=== PATIENT | female | born 1950 | race Caucasian/White ===

== ENCOUNTER 2017-12-06 11:50 | Day surgery (SDC) | payer MEDICARE ==
[2017-12-01 09:37] VITALS: BMI 27.3
[~2017-12-06 11:50] MED LIST: HYDROmorphone 0.5 MG/0.5 ML SYRINGE IVP PRN; LACTATED RINGERS 1,000 ML IV SCH; Pre Op ABX Message 1 EACH MISC MISCELLANE ONE; fentaNYL (PF) 50 MCG/ML 2 ML AMP IV PRN
[2017-12-06] MEDS ORDERED: LIDOCAINE 1% 20 ML VIAL (10MG/ML) FOR IV START INTRADERMA ONE (12:40)
[2017-12-06] MEDS ORDERED: DEXAMETHASONE SOD PHOS (MDV) 100 MG/10 ML VIAL IV ONE (12:41)
[2017-12-06] MEDS: ONDANSETRON 4 MG/2 ML VIAL IVP ONE ×2 (12:42→15:19)
[2017-12-06] MEDS ORDERED: LIDOCAINE 1% INJ 10MG/ML (20 ML MDV) ONE (12:54)
[2017-12-06] MEDS ORDERED: DEXAMETHASONE SOD PHOS (MDV) 100 MG/10 ML VIAL ONE (12:54)
[2017-12-06] MEDS ORDERED: PROPOFOL 10 MG/ML 20 ML VIAL IV ONE (12:54)
[2017-12-06] MEDS ORDERED: ePHEDrine SULFATE/0.9% NACL/PF 50 MG/5 ML SYRINGE IV ONE (12:54)
[2017-12-06] MEDS ORDERED: MIDAZOLAM 2 MG/2 ML VIAL ONE (12:54)
[2017-12-06] MEDS ORDERED: fentaNYL (PF) 50 MCG/ML 2 ML AMP ONE (12:54)
[2017-12-06] MEDS ORDERED: SODIUM CHLORIDE 0.9% 100 ML with ceFAZolin 2,000 MG IV ONE ×2 (13:05)
[2017-12-06] MEDS ORDERED: ROPIVACAINE 5 MG/ML 30 ML VIAL MISCELLANE ONE ×2 (13:12→14:21)
[2017-12-06 14:57] VITALS: TEMP 97
--- NOTE | 2017-12-06 15:03 | P.PCN ---
Date of Procedure: 12/06/17 Preoperative Diagnosis: 1. Hallux abductovalgus deformity left foot 2. 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 Lavelle Jason bunionectomy with pin and wire fixation left foot 2. Arthrodesis second toe left foot with pin fixation Surgeon: Alec Raman Operative Findings: Unremarkable Description of Procedure: On the date of surgery the patient was taken to the operating room in good condition placed on the operating table supine position where an V was started and LMA. The patient's first ray complex was then injected with 10 mL of Sensorcaine was administered in a Sloan type block to the first ray complex of the patient's left foot The patient's left foot and ankle were then prepped and draped in the usual aseptic manner and over heavy web roll padding an ankle tourniquet was placed above the malleoli of the patient's left ankle the patient's left foot and ankle were then elevated and exsanguinated of blood utilizing Esmarch bandage and after approximately 2 minutes period of time the ankle tourniquet was inflated to approximately 275 mmHg. At this point in time attention was directed to the dorsal aspect of the metatarsal phalangeal joint where an approximately Demeter dorsal linear incision was made the incision was deepened via sharp dissection down through the level of subcutaneous tissue layers all neurovascular structures encountered were identified isolated and were retracted and any bleeding vessels were then clamped electrocauterized. Dissection was then carried deep via sharp and blunt technique down to level Periosteal Structures Overlying the First Metatarsal Phalangeal Joint These Were Incised Utilizing an Inverted L Incision and Underscored and Retracted from the Underlying Bone Hyperostosis Present on the Medial Side of the First Metatarsal Head Was Then Resected Flush in Line with the Shaft of the First Metatarsal and Removed in Total from the Surgical Site. Throughout the Surgical Procedure Copious Amounts Sterile Saline Solution Was Used To Irrigate the Surgical Site. At This Point in Time the Oscillating Bone Saw Was Used To Create a Transverse V Osteotomy at the Level of the Metaphysis of the First Metatarsal upon Completion of This Osteotomy the Capital Fragment Was Displaced Laterally and Impacted Back upon the Drake Created by the Osteotomy Was Then Fixated with 2 Crossing 0.062 K Wires at This Point in Time Attention Was Directed to the Lateral Capsular Area of the First Metatarsal Phalangeal Joint Where Dissection Was Carried Deep along the Side of the Joint and a Lateral Capsulotomy Was Performed. Carried Deep down to Level Parosteal Structures Overlying the Base of the Proximal Phalanx These Were Incised in Line original skin incision and underscored and retracted from the underlying bone eyes an oscillating bone saw a dorsal to plantar wedge osteotomy was performed in such a manner that the apex of the wedge was directed laterally base of the wedge was directed medially the encompass wedge of bone was removed in total from the surgical site by applying lateral to medial pressure the osteotomy closed down upon itself to surgical drill holes were then fashioned on either side of the osteotomy in such a manner that they met with then using double strength 28-gauge monofilament stainless steel wire the osteotomy was fixated and anatomically closed in opposed position. Upon completion of this the hallux was seen to maintain a rectus. Redundant Capsule medial side of the joint was then removed Capsule and Periosteal Structures Then Coaptated and Maintained Utilizing 201 3-0 Vicryl Simple Interrupted Suture. Subcutaneous Tissues Were Then Coaptated and Maintained Utilizing 3-0 Vicryl Simple Interrupted Suture and the Skin Was Closed Utilizing 4-0 nylon simple interrupted suture At this point in time attention was directed to the dorsal aspect of the second digit left foot where an approximately 2-1/2 cm dorsal linear incision was made. The incision was deepened via sharp dissection down through the level of subcutaneous tissue layers all neurovascular structures encountered were identified isolated and were retracted and any bleeding vessels were clamped electrocauterized dissection was then carried deep down to the level of the extensor digitorum longus tendon to the second toe which was incised in line with the proximal interphalangeal joint and underscored and retracted from the underlying bone. Utilizing an oscillating bone saw the head of the proximal phalanx was resected it a 90 angle to the shaft and removed in total from the surgical site. Utilizing the oscillating bone saw the base of the middle phalanx was resected. 0.045 K wire was then passed through the middle and distal phalanx and retrograded back into the proximal phalanx the digit and anatomically corrected position. The extensor digitorum longus tendon was then shortened and then coaptated and maintained utilizing 3-0 Vicryl simple interrupted suture and the skin was closed utilizing 4-0 nylon simple interrupted suture at this point in time Adaptic was applied to the incision sites and Kerlix fluffs as well as four-inch Herson and Coban to form a compression dressing the ankle tourniquet to the patient's left ankle was deflated and adequate hemostatic return was seen in all digits of the left foot specifically the hallux and the second toe The patient was then
[2017-12-06] MEDS ORDERED: PROMETHAZINE INJ 25 MG/ML 1 ML VIAL IVPB ONE (15:31)
[2017-12-06 16:10] VITALS: RESP 18
[2017-12-06 16:25] VITALS: PULSE 84
[2017-12-06 16:41] VITALS: BP 129/70
== END 2017-12-06 17:16 | disposition home or self-care (01) ==
LOC: OR 11:50
PROVIDERS: ATTEND Podiatrist Foot & Ankle Surgery
DX: M20.12 Hallux valgus (acquired), left foot (principal); M20.42 Other hammer toe(s) (acquired), left foot; E78.5 Hyperlipidemia, unspecified; G47.00 Insomnia, unspecified; J45.909 Unspecified asthma, uncomplicated; L71.9 Rosacea, unspecified; R61 Generalized hyperhidrosis; L91.8 Other hypertrophic disorders of the skin; Z79.82 Long term (current) use of aspirin; Z79.899 Other long term (current) drug therapy; Z79.51 Long term (current) use of inhaled steroids; Z88.8 Allergy status to other drugs, medicaments and biological substances; Z87.891 Personal history of nicotine dependence

== ENCOUNTER → 2024-03-06 | Day surgery (SDC) | payer MEDICARE, OTHER ==
[2024-03-05 09:53] VITALS: BMI 25.1
[~2024-03-06] MED LIST changes: -HYDROmorphone 0.5 MG/0.5 ML SYRINGE IVP PRN; -LACTATED RINGERS 1,000 ML IV SCH; +MIDAZOLAM 2 MG/2 ML VIAL ONE; -Pre Op ABX Message 1 EACH MISC MISCELLANE ONE; +TETRACAINE 0.5% OPHTH (PF) DROPS 4 ML BTL OP PRN; -fentaNYL (PF) 50 MCG/ML 2 ML AMP IV PRN; +fentaNYL (PF) 50 MCG/ML 2 ML AMP ONE
[2024-03-06] MEDS: CYCLOPENTOLATE 1% OPHTH SOLN 2 ML BTL OP PRN (08:44)
[2024-03-06] MEDS: PHENYLEPHRINE 2.5% OPHTH DRP 2ML OP PRN (08:47)
[2024-03-06 08:53] VITALS: TEMP 98.2
[2024-03-06] MEDS: LACTATED RINGERS 1,000 ML IV SCH (09:08)
[2024-03-06] MEDS: IV FLUID CONTINUATION 1,000 ML IV ONE (09:08)
[2024-03-06] MEDS: BALANCED SALT IRRIG SOLN COMB2 15 ML IRRIG.SOLN IRRIGATION ONE (10:11)
[2024-03-06] MEDS: DUOVISC KIT (GREEN BOX) INTRAOCULA ONE (10:11)
[2024-03-06] MEDS: MOXIFLOXACIN HCL 0.5% DROPS 3 ML BTL OP PRN (10:12)
[2024-03-06] MEDS: TIMOLOL 0.5% OPHTH DROPS 5 ML BTL OP PRN (10:12)
[2024-03-06] MEDS: LIDOCAINE 1% (PF) 10MG/ML VIAL MISCELLANE ONE (10:12)
[2024-03-06] MEDS: ATROPINE OPHTH SOLN 1% 5ML BTL OPHTHALMIC ONE (10:13)
[2024-03-06] MEDS: EPINEPHrine (PF) 0.3 ML in BALANCED SALT IRRIG SOLN COMB2 500 ML IRRIGATION ONE (10:13)
--- NOTE | 2024-03-06 10:50 | P.OP ---
Date of Procedure: 03/06/24 Preoperative Diagnosis: NS & cS Postoperative Diagnosis: same Procedure(s) Performed: PIOL, OD Implants: [id number] 21.50 Anesthesia: MAC Surgeon: Abdirahman Siddiqui Pathology: none sent Condition: stable Disposition: same day Indications for Procedure: blurry vision Operative Findings: no complications
[2024-03-06 10:55] VITALS: RESP 16
[2024-03-06 11:10] VITALS: BP 156/81; PULSE 64
--- NOTE | 2024-03-06 19:35 | OP ---
OPERATIVE REPORT DATE OF SERVICE : 03/06/2024 PROCEDURE: Phacoemulsification of cataract and intraocular lens implant of the right eye. PREOPERATIVE DIAGNOSES: Nuclear sclerosis, cortical sclerosis with regular astigmatism. POSTOPERATIVE DIAGNOSES: Nuclear sclerosis, cortical sclerosis with regular astigmatism. ANESTHESIA: Topical. ESTIMATED BLOOD LOSS: None. SPECIMEN TAKEN: None. NARRATIVE: After obtaining the appropriate consent, the patient was brought to the operating room. There, she was placed under cardiac monitoring, prepped and draped in the usual sterile manner. She was approached from her right temporal side. Using previously acquired corneal topography information, the axis of 59 degrees was identified and marked with a OptuLink axis marker. A 5.5 mm Jane ring was placed centrally over the Purkinje reflex and at the 11 o'clock position, an MVR blade was used to create a paracentesis port. Through this opening, 1% Xylocaine MPF 50:50 mix with balanced salt solution was injected into the anterior chamber. This was followed by Viscoat. At the 9 o'clock position, a 2.75 mm nickie keratome was used to create a self-sealing corneal flap incision in Langerman's fashion. Through this opening, a cystotome was introduced to begin a continuous tear capsulorrhexis, which was completed using the Utrata forceps. Care was taken to ensure that the size of the anterior capsulorrhexis was the size of the iraida previously placed on the eye with a Jane marker. Hydrodissection and hydrodelineation of the lens were accomplished with balanced salt solution. Phacoemulsification of the lens was accomplished in 21.10 seconds at 16.4% power. This was followed by installation of additional Xylocaine MPF and removal of the remaining cortical material under irrigation and aspiration as well as careful polishing of the posterior capsule in the capsule vacuum mode. Provisc was then used to stabilize the capsular bag. The underside and equator of the capsular bag were cleaned as well as possible using both [place] and pappose capsule polishing instruments for 360 degrees around the lens capsule. The temporal incision was then enlarged slightly to accommodate the lens injector, and a Bausch [employer] Lomb Trulign toric model [id number], 21.5 diopter posterior chamber intraocular lens was injected into the capsular bag without difficulty. The lens was rotated with a Sinskey hook for at least 270 degrees, ensuring that all previous adhesions from lens material were no longer present. The lens was then moved into the desired position at the 59 degree axis iraida and all remaining viscoelastic was removed from in and around the intraocular lens with irrigation and aspiration. The eye was brought to normal intraocular pressure through the paracentesis port and watertight integrity was ensured using Tisseel. The patient then received 2 drops of 0.5% timolol followed by 2 drops of 0.5% moxifloxacin. She was then lightly patched and shielded in the usual manner. There were no complications from the procedure. She tolerated the procedure well and was returned to outpatient recovery in good condition. MMODL / IJN: [id number] /
== END | disposition home or self-care (01) ==
LOC: OR 08:09
PROVIDERS: ATTEND Ophthalmology
DX: H25.011 Cortical age-related cataract, right eye (principal); H25.11 Age-related nuclear cataract, right eye; H52.221 Regular astigmatism, right eye; E78.5 Hyperlipidemia, unspecified; J45.909 Unspecified asthma, uncomplicated; M19.90 Unspecified osteoarthritis, unspecified site; F41.9 Anxiety disorder, unspecified; K21.9 Gastro-esophageal reflux disease without esophagitis; Z79.899 Other long term (current) drug therapy
CPT/HCPCS: 66984; V2787; C1780; J2250; J0171; J3010; J2003

== ENCOUNTER 2024-04-03 07:16 | Day surgery (SDC) | payer MEDICARE, OTHER ==
[~2024-04-03 07:16] MED LIST changes: +ATROPINE OPHTH SOLN 1% 5ML BTL OPHTHALMIC PRN; +LACTATED RINGERS 1,000 ML IV SCH; +LIDOCAINE 1% (10MG/ML) FOR IV START INTRADERMA PRN; -MIDAZOLAM 2 MG/2 ML VIAL ONE; +ONDANSETRON 4 MG/2 ML VIAL IVP PRN; +fentaNYL (PF) 50 MCG/ML 2 ML AMP IV PRN; -fentaNYL (PF) 50 MCG/ML 2 ML AMP ONE
[2024-04-03] MEDS: IV FLUID CONTINUATION 1,000 ML IV ONE (08:02)
[2024-04-03] MEDS: CYCLOPENTOLATE 1% OPHTH SOLN 2 ML BTL OP PRN (08:07)
[2024-04-03] MEDS: PHENYLEPHRINE 2.5% OPHTH DRP 2ML OP PRN (08:10)
[2024-04-03 08:12] VITALS: TEMP 97.6
[2024-04-03] MEDS ORDERED: MIDAZOLAM 2 MG/2 ML VIAL ONE (09:05)
[2024-04-03] MEDS: EPINEPHrine (PF) 0.3 ML in BALANCED SALT IRRIG SOLN COMB2 500 ML IRRIGATION ONE (09:17)
[2024-04-03] MEDS: DUOVISC KIT (GREEN BOX) INTRAOCULA ONE (09:20)
[2024-04-03] MEDS: BALANCED SALT IRRIG SOLN COMB2 15 ML IRRIG.SOLN IRRIGATION ONE (09:20)
[2024-04-03] MEDS: TIMOLOL 0.5% OPHTH DROPS 5 ML BTL OP PRN (09:21)
[2024-04-03] MEDS: MOXIFLOXACIN HCL 0.5% DROPS 3 ML BTL OP PRN (09:21)
[2024-04-03] MEDS: LIDOCAINE 1% (PF) 10MG/ML VIAL SQ ONE (09:21)
[2024-04-03] MEDS: ATROPINE OPHTH SOLN 1% 5ML BTL LEFT EYE ONE (09:42)
--- NOTE | 2024-04-03 09:47 | P.OP ---
Date of Procedure: 04/03/24 Preoperative Diagnosis: NS & CS Postoperative Diagnosis: same Procedure(s) Performed: PIOL< OS Implants: [id number] 21.50 Anesthesia: MAC Surgeon: Abdirahman Siddiqui Pathology: none sent Condition: stable Disposition: same day Indications for Procedure: blurry vision Operative Findings: no complications
[2024-04-03 10:01] VITALS: BP 130/64; PULSE 57; RESP 16
--- NOTE | 2024-04-03 12:15 | OP ---
OPERATIVE REPORT DATE OF SERVICE : 04/03/2024 PROCEDURE PERFORMED: Phacoemulsification of cataract and intraocular lens implantation, left eye. PREOPERATIVE DIAGNOSIS: Nuclear sclerosis, cortical sclerosis with regular astigmatism. POSTOPERATIVE DIAGNOSIS: Nuclear sclerosis, cortical sclerosis with regular astigmatism. ANESTHESIA: Topical. ESTIMATED BLOOD LOSS: None. SPECIMEN TAKEN: None. DESCRIPTION OF PROCEDURE: After obtaining the appropriate consent, the patient was brought to the operating room. There, she was placed under cardiac monitoring, prepped and draped in the usual sterile manner. She was approached from her left temporal side, and using previously acquired corneal topography information, the axis of 144 degrees was identified and marked with a [employer] axis marker. At the 5 o'clock position, an MVR blade was used to create a paracentesis port. Through this opening, 1% Xylocaine MPF 50:50 mix with balanced salt solution was injected into the anterior chamber. This was followed by stabilization of the anterior chamber with Viscoat At the 3 o'clock position, a 2.75 mm nickie keratome was used to create a self-sealing corneal flap incision in a Langerman's fashion. A 5.5 mm Jane ring was placed, marked with gentian benji was placed over the Purkinje reflex central on the patient's cornea. A cystotome was introduced through the temporal incision to begin a continuous tear capsulorrhexis, which was completed using Utrata forceps. Care was taken to ensure the size of the rhexis was the size of the iraida previously placed on the patient's central cornea. Hydrodissection and hydrodelineation of the lens were accomplished with balanced salt solution. Phacoemulsification of the lens utilizing phaco chop was accomplished in 16.8 seconds at 15.6% power. Additional Xylocaine MPF was instilled into the anterior chamber. This was followed by removal of the remaining cortical material from in and around the intraocular lens as well as on the posterior capsule. Provisc was then used to stabilize the capsular bag and using both [place] and Pepose capsule polisher. The entire 360 degrees of the anterior capsular leaflet and equator were cleared of any significant remaining cortical material. The temporal incision was enlarged slightly with a keratome and a Bausch and Lomb Trulign, model [id number], 21.5 diopter posterior chamber intraocular lens. It was then inserted into the capsular bag without difficulty. The lens was rotated at least 270 degrees to confirm. The remaining cortical material was largely removed from the equator of the lens bag. This was followed by irrigation and aspiration of the remaining viscoelastic, and then final rotation into the orientation aligned with the axis iraida placed on the cornea at the beginning of the case. The eye was then brought to normal intraocular pressure through the paracentesis port with balanced salt solution. The conjunctiva and cul-de-sac were dried with a Weck- Trinh sponge. This was followed by Tisseel to maintain watertight integrity of the two incisions for the cataract removal. The patient then received two drops of 0.5% moxifloxacin, two drops of 0.5% timolol, and two drops of 1% atropine. She was then lightly patched at the end of the case. There were no complications from the procedure. She tolerated the procedure well and was returned to the outpatient recovery in good condition. MMHAI / LEEANNA: [id number] / MTDD
== END 2024-04-03 10:20 | disposition home or self-care (01) ==
LOC: OR 07:16
PROVIDERS: ATTEND Ophthalmology
DX: H25.12 Age-related nuclear cataract, left eye (principal); H25.012 Cortical age-related cataract, left eye; E78.5 Hyperlipidemia, unspecified; J45.909 Unspecified asthma, uncomplicated; M19.90 Unspecified osteoarthritis, unspecified site; K21.9 Gastro-esophageal reflux disease without esophagitis; F41.9 Anxiety disorder, unspecified; Z87.891 Personal history of nicotine dependence; Z79.51 Long term (current) use of inhaled steroids; Z79.899 Other long term (current) drug therapy; Z89.121 Acquired absence of right wrist
CPT/HCPCS: 66984; V2787; C1780; J2250; J0171; J2003